=== PATIENT | female | born 1980 | race African-American/Black ===

== ENCOUNTER 2017-02-04 21:34 | Emergency (ER) | payer MEDICARE, MEDICAID ==
[~2017-02-04] VITALS: Ht 185.4 cm; Wt 158.8 kg
--- NOTE | 2017-02-04 21:39 | NUR ---
PATEINT WALKED INTO ER C/O PUSS DISCHARGE ON THROAT X2 DAYS... PT IS ALERT, ORIENTED X 4, NO RESP DISTRESS NOTED OR REPORTED UPON ASSESSMENT... MD AT BEDSIDE...
[2017-02-04] MEDS ORDERED: ALBU8.5H2 IH (22:10)
[2017-02-04] MEDS ORDERED: predniSONE 20 MG TABLET PO ONE (23:00)
[2017-02-04] MEDS ORDERED: CEPHALEXIN MONOHYDRATE 500 MG CAPSULE PO ONE (23:00)
[2017-02-04] MEDS ORDERED: predniSONE 10 MG TABLET ONE (23:07)
[2017-02-04] MEDS ORDERED: predniSONE 50 MG TABLET ONE (23:07)
[2017-02-04] MEDS ORDERED: CEPHALEXIN MONOHYDRATE 500 MG CAPSULE ONE (23:07)
--- NOTE | 2017-02-05 00:20 | NUR ---
Patient discharged to home in stable conditon. Written and verbal after care instructions given. Patient verbalizes understanding of instructions.
== END 2017-02-05 00:20 | disposition home or self-care (01) ==
LOC: ER 21:36
DX: L04.0 Acute lymphadenitis of face, head and neck (principal); J45.909 Unspecified asthma, uncomplicated; F10.20 Alcohol dependence, uncomplicated; F12.10 Cannabis abuse, uncomplicated; F17.200 Nicotine dependence, unspecified, uncomplicated
CPT/HCPCS: 70490; A4663; J7512

== ENCOUNTER 2017-03-10 19:50 | Emergency (ER) | payer MEDICARE, MEDICAID ==
[~2017-03-10] VITALS: Ht 182.9 cm; Wt 145.1 kg
[~2017-03-10 19:50] MED LIST: ALBU8.5H8 IH
[2017-03-10] MEDS ORDERED: ONDANSETRON ODT 4 MG TAB.RAPDIS SL ONE (20:45)
[2017-03-10] MEDS ORDERED: ACETAMINOPHEN ES 500 MG TABLET PO ONE (20:45)
[2017-03-10 20:53] LABS: BASOPHILS % (AUTO) 0.2 % (0.0-2.0); EOSINOPHILS # (AUTO) 0.2 K/uL (0.0-0.7); EOSINOPHILS % (AUTO) 1.7 % (0.0-7.0); HEMATOCRIT 36.9 % (37-47); HEMOGLOBIN 12.2 G/DL (12.0-16.0); LYMPHOCYTES # (AUTO) 0.8 K/UL (0.8-4.8); LYMPHOCYTES % (AUTO) 6.7 % (20.5-51.5); MEAN CORPUSCULAR HEMOGLOBIN 28.6 UUG (27.0-31.0); MEAN CORPUSCULAR HGB CONC 33 g/dL (32.0-37.0); MEAN CORPUSCULAR VOLUME 86.6 FL (81.0-99.0); MONOCYTES # (AUTO) 0.7 K/UL (0.1-1.30); MONOCYTES % (AUTO) 5.8 % (0.0-11.0); NEUTROPHILS # (AUTO) 10.8 K/UL (1.8-8.9); NEUTROPHILS % (AUTO) 85.6 % (38.5-71.5); PLATELET COUNT (AUTO) 230 K/UL (150-450); RED BLOOD CELL COUNT(AUTO) 4.27 MIL/UL (4.2-5.4); WHITE BLOOD COUNT (AUTO) 12.5 K/UL (4.0-11.2)
--- NOTE | 2017-03-10 21:00 | NUR ---
Pt ambulated to room with steady gait. Pt c/o right ear pain, severe sore throat and sts she is detoxing from etoh. Admits to 3 glasses of wine this am. Pt seen by . Labs drawn and sent. Pt medicated for discomfort, will monitor for effects of medication. Pt resting in position of comfort for self.
[2017-03-10] MEDS ORDERED: ACETAMINOPHEN ES 500 MG TABLET ONE (21:03)
[2017-03-10] MEDS ORDERED: ONDANSETRON ODT 4 MG TAB.RAPDIS ONE (21:03)
[2017-03-10 21:07] LABS: BILIRUBIN,TOTAL 0.7 mg/dL (0.2-1.0); CREATININE 0.7 mg/dL (0.6-1.3); POTASSIUM 3.5 mmol/L (3.5-5.1)
--- NOTE | 2017-03-10 22:00 | NUR ---
Pt stable for discharge per MD. Pt given ACI. Pt verbalized understanding of dc instructions. Pt ambulated out of er with steady gait.
[2017-03-10 22:08] VITALS: BP 168/89
== END 2017-03-10 22:00 | disposition home or self-care (01) ==
LOC: ER 19:56
DX: H66.91 Otitis media, unspecified, right ear (principal); F10.20 Alcohol dependence, uncomplicated; F10.239 Alcohol dependence with withdrawal, unspecified; F17.200 Nicotine dependence, unspecified, uncomplicated; J45.909 Unspecified asthma, uncomplicated; F12.10 Cannabis abuse, uncomplicated
CPT/HCPCS: 36415; 83690; 85025; A4663; Q0162